=== PATIENT | female | born 1975 | race Caucasian/White ===

== ENCOUNTER 2019-07-12 21:01 | Emergency (ER) | payer MEDICAID ==
[~2019-07-12] VITALS: Ht 170.2 cm; Wt 65.8 kg
[2019-07-12 21:25] VITALS: BP 122/75
--- NOTE | 2019-07-12 21:28 | NUR ---
TO LOBBY A/W BED AMBULATORY
--- NOTE | 2019-07-12 21:35 | NUR ---
PT AMBULATED TO BED #6
--- NOTE | 2019-07-12 21:45 | NUR ---
43 Y/O F PRESENTS TO ED WITH C/O DIZZINESS AND LIGHTHEADEDNESS. PT REPORTS DURING AMBULATION SHE "FEELS DIZZY." +NAUSEA. PT STATES THAT SHE DOES NOT DRINK MUCH FLUIDS ON A DAILY BASIS. DENIES VISION CHANGES. PT SELF MEDICATED WITH TYLENOL AT 1430 FOR MIGRAINE. DENIES PAIN AT THIS TIME. BEDRAIL X1 UP. FAMILY AT BEDSIDE. WILL CONTINUE TO MONITOR.
--- NOTE | 2019-07-12 21:59 | NUR ---
URINE SPECIMEN PROVIDED.
--- NOTE | 2019-07-12 22:54 | NUR ---
Dr. Dueñas examining patient.
--- NOTE | 2019-07-12 23:10 | NUR ---
PT PROVIDED DISCHARGE PAPERWORK. GIVEN RX OF CIPRO AND ZOFRAN. MEDICATION ADMINISTRATION AND SIDE EFFECTS EXPLAINED. PT VERBALIZED UNDERSTANDING. PT AMBULATORY. ADVISED TO F/U WITH PCP.
[2019-07-12 23:11] VITALS: BP 122/67
== END 2019-07-12 23:10 | disposition home or self-care (01) ==
LOC: MED 21:01
DX: N39.0 Urinary tract infection, site not specified (principal); R42 Dizziness and giddiness; J45.909 Unspecified asthma, uncomplicated; Z98.890 Other specified postprocedural states; Z88.0 Allergy status to penicillin
CPT/HCPCS: 81002; 81025; 99283

== ENCOUNTER 2020-06-17 20:38 | Emergency (ER) | payer MEDICAID ==
[~2020-06-17] VITALS: Ht 152.4 cm; Wt 63.5 kg
[2020-06-17 20:55] VITALS: BP 120/75
--- NOTE | 2020-06-17 21:01 | NUR ---
PT TAKEN TO BED 6
--- NOTE | 2020-06-17 21:27 | NUR ---
Dr. Latham examining patient.
--- NOTE | 2020-06-17 21:45 | NUR ---
ACI given to pt with verbal understanding. Pt ambulated off unit with steady gait and all belongs
[2020-06-17 21:59] VITALS: BP 116/65
== END 2020-06-17 21:45 | disposition home or self-care (01) ==
LOC: MED 20:38
DX: K08.89 Other specified disorders of teeth and supporting structures (principal); J45.909 Unspecified asthma, uncomplicated; Z88.0 Allergy status to penicillin; Z98.890 Other specified postprocedural states
CPT/HCPCS: 99281; 99283

== ENCOUNTER 2020-10-15 14:32 | Emergency (ER) | payer MEDICAID ==
[~2020-10-15] VITALS: Ht 170.2 cm; Wt 87.5 kg
[2020-10-15 14:38] VITALS: BP 107/57
--- NOTE | 2020-10-15 14:49 | NUR ---
PT AMBULATED TO BED 7 WITH EVEN STEADY GAIT
--- NOTE | 2020-10-15 14:57 | NUR ---
44 y/o female bib self for right leg pain. Patient states "I have pain in my right leg; I think it could be form working out; i must have sprained it." Pain is a 9/10 and desribes it as being sore. Pain gets worse when patient walks. On assessment, skin is warm dry and intact. nontender on palpation. pt has full ROM. pt denies injury/trauma. pt took tylenol for pain with some relief. pt denies N/V/SOB. pt is a/o x4 with even and unlabored respirations. pt is laying in bed with bed in lowest position, brakes locked, x1 siderail up. Pmh: asthma medication: albuterol allergies: pcn
[2020-10-15] MEDS ORDERED: KETOROLAC 60 MG/2 ML VIAL IM ONE (15:00)
--- NOTE | 2020-10-15 15:02 | NUR ---
GERMAN OTERO AT BEDSIDE
--- NOTE | 2020-10-15 15:14 | NUR ---
US AT BEDSIDE
--- NOTE | 2020-10-15 15:35 | NUR ---
pt ambulated to restroom with steady gait for urine sample
[2020-10-15] MEDS ORDERED: METH750T5 PO (16:22)
[2020-10-15] MEDS ORDERED: NAPR-54 PO (16:22)
[2020-10-15 16:38] VITALS: BP 107/57
--- NOTE | 2020-10-15 16:39 | NUR ---
Patient discharged with v/s stable. Written and verbal after care instructions given and explained. Patient alert, oriented and verbalized understanding of instructions. Ambulatory with steady gait. All questions addressed prior to discharge. ID band removed. Patient advised to follow up with PMD. Rx of methocarbamol and naproxen given. Patient educated on indication of medication including possible reaction and side effects. Opportunity to ask questions provided and answered.
== END 2020-10-15 16:39 | disposition home or self-care (01) ==
LOC: MED 14:32
DX: S86.911A Strain of unspecified muscle(s) and tendon(s) at lower leg level, right leg, initial encounter (principal); J45.909 Unspecified asthma, uncomplicated; Z79.899 Other long term (current) drug therapy; Z88.0 Allergy status to penicillin; X58.XXXA Exposure to other specified factors, initial encounter; Y93.89 Activity, other specified; Y92.89 Other specified places as the place of occurrence of the external cause; Y99.8 Other external cause status
CPT/HCPCS: 81002; 81025; 93971; 96372; 99284; J1885

== ENCOUNTER 2021-01-02 17:22 | Emergency (ER) | payer MEDICAID ==
[~2021-01-02] VITALS: Ht 172.7 cm; Wt 74.8 kg
[~2021-01-02 17:22] MED LIST: METH750T5 PO; NAPR-54 PO
[2021-01-02 17:28] VITALS: BP 123/77
--- NOTE | 2021-01-02 17:28 | NUR ---
AMBULATORY TO ED 05
[2021-01-02] MEDS ORDERED: ALBUTEROL SULFATE/IPRATROPIU 3 ML SOL IH ONE (17:45)
[2021-01-02] MEDS ORDERED: ALBUTEROL 0.083% 2.5 MG/3 ML NEBU INH ONE (17:45)
[2021-01-02] MEDS ORDERED: predniSONE 20 MG TAB PO ONE (17:45)
[2021-01-02] MEDS ORDERED: PRED20TA5 PO (17:56)
[2021-01-02] MEDS ORDERED: ALBU0.0912 IH (17:56)
[2021-01-02] MEDS ORDERED: BUDE1AER IH (17:56)
--- NOTE | 2021-01-02 18:00 | NUR ---
45 Y/O FEMALE C/O SOB, COUGH, FATIGUE, CHILLS, KRISHNAMURTHY X2 DAYS. PT DENIES EXPOSURE TO COVID. PT USED SYMBICORT WITH NO RELIEF. SPO2 96% ON RA. PT HAS NOT RECEIVED COVID VACCINE. IN ED, VSS. NOT IN RESPIRATORY DISTRESS. CLEAR BREATH SOUNDS. ERMD MADE AWARE OF PT STATUS. PMH:ASTHMA ALLERGIES: PCN
[2021-01-02 18:31] VITALS: BP 123/77
--- NOTE | 2021-01-02 18:32 | NUR ---
Patient discharged with v/s stable. Written and verbal after care instructions given and explained. Patient alert, oriented and verbalized understanding of instructions. Ambulatory with steady gait. All questions addressed prior to discharge. ID band removed. Patient advised to follow up with PMD. Rx of albuterol, symbicort, prednisone given. Patient educated on indication of medication including possible reaction and side effects. Opportunity to ask questions provided and answered.
== END 2021-01-02 18:32 | disposition home or self-care (01) ==
LOC: MED 17:22
DX: J45.901 Unspecified asthma with (acute) exacerbation (principal); Z88.0 Allergy status to penicillin; Z79.899 Other long term (current) drug therapy
CPT/HCPCS: 94640; 99283; J7512; J7613

== ENCOUNTER 2021-01-13 15:41 | Emergency (ER) | payer MEDICAID ==
[~2021-01-13] VITALS: Ht 170.2 cm; Wt 77.1 kg
[~2021-01-13 15:41] MED LIST changes: +ALBU0.0912 IH; +BUDE1AER IH; +PRED20TA5 PO
[2021-01-13 16:12] VITALS: BP 113/76
[2021-01-13] MEDS ORDERED: KETOROLAC 30 MG/ML VIAL IM ONE (16:55)
[2021-01-13] MEDS ORDERED: CYCL-711 PO (17:19)
[2021-01-13] MEDS ORDERED: IBUP-2213 PO (17:19)
[2021-01-13] MEDS ORDERED: NITR100C7 PO (17:19)
[2021-01-13 17:40] VITALS: BP 113/76
== END 2021-01-13 17:40 | disposition home or self-care (01) ==
LOC: MED 15:41
DX: S39.012A Strain of muscle, fascia and tendon of lower back, initial encounter (principal); N39.0 Urinary tract infection, site not specified; J45.909 Unspecified asthma, uncomplicated; Z88.0 Allergy status to penicillin; Z79.899 Other long term (current) drug therapy; X58.XXXA Exposure to other specified factors, initial encounter; Y93.89 Activity, other specified; Y92.89 Other specified places as the place of occurrence of the external cause; Y99.8 Other external cause status
CPT/HCPCS: 81002; 81025; 87086; 96372; 99283; J1885

== ENCOUNTER 2021-03-10 13:45 | Emergency (ER) | payer MEDICAID ==
[~2021-03-10] VITALS: Ht 172.7 cm; Wt 72.6 kg
[~2021-03-10 13:45] MED LIST changes: +CEPH-588 PO; +CYCL-711 PO; +IBUP-2213 PO; +NITR100C7 PO
[2021-03-10 13:59] VITALS: BP 134/73
[2021-03-10] MEDS ORDERED: KETOROLAC 30 MG/ML VIAL IM ONE (14:45)
[2021-03-10] MEDS ORDERED: ACET-8386 PO (14:48)
[2021-03-10] MEDS ORDERED: CLIN300C2 PO (14:48)
--- NOTE | 2021-03-10 15:10 | NUR ---
45 Y/O FEMALE C/O RIGHT SIDED TOOTH PAIN X 2 HOUR AGO. PT STATES SHE WAS EATING SOMETHING AND FELT A SHARP PAIN IN TOOTH, AND NOTICED THAT PIECE OF TOOTH FELL OFF. BOTTOM RIGHT. PT RATES PAIN 10/10 THAT SHE DESCRIBES SHARP AND RADIATES ON THE SIDE OF HER FACE. PT A/O X4 WITH EVEN AND UNLABORED RESPIRATIONS. PMH - ASTHMA ALLERGIES - PCN
--- NOTE | 2021-03-10 15:29 | NUR ---
Patient discharged with v/s stable. Written and verbal after care instructions ABOUT TOOTH AVULSION given and explained. Patient alert, oriented and verbalized understanding of instructions. Ambulatory with steady gait. All questions addressed prior to discharge. ID band removed. Patient advised to follow up with PMD. Rx of NORCO 325, IBUPROFEN AND CLINDAMYCIN given. Patient educated on indication of medication including possible reaction and side effects. Opportunity to ask questions provided and answered.
[2021-03-10] MEDS ORDERED: IBUP-2213 PO (15:42)
== END 2021-03-10 15:29 | disposition home or self-care (01) ==
LOC: MED 13:45
DX: K08.419 Partial loss of teeth due to trauma, unspecified class (principal); J45.909 Unspecified asthma, uncomplicated; Z88.0 Allergy status to penicillin; Z79.899 Other long term (current) drug therapy
CPT/HCPCS: 96372; 99283; J1885

== ENCOUNTER 2021-04-07 17:25 | Emergency (ER) | payer MEDICAID ==
[~2021-04-07] VITALS: Ht 170.2 cm; Wt 68.0 kg
[~2021-04-07 17:25] MED LIST changes: +ACET-8386 PO; +CLIN300C2 PO
[2021-04-07 18:11] VITALS: BP 127/79
--- NOTE | 2021-04-07 18:14 | NUR ---
TENT 1
--- NOTE | 2021-04-07 19:24 | NUR ---
Patient discharged with v/s stable. Written and verbal after care instructions given and explained. Patient verbalized understanding. Ambulatory with steady gait. All questions addressed prior to discharge. Advised to follow up with PMD.
== END 2021-04-07 19:24 | disposition home or self-care (01) ==
LOC: MED 17:25
DX: R21 Rash and other nonspecific skin eruption (principal); L29.9 Pruritus, unspecified; J45.909 Unspecified asthma, uncomplicated; Z88.0 Allergy status to penicillin; Z79.899 Other long term (current) drug therapy
CPT/HCPCS: 99282

== ENCOUNTER 2021-05-11 20:09 | Emergency (ER) | payer MEDICAID ==
[~2021-05-11] VITALS: Ht 170.2 cm; Wt 90.3 kg
[2021-05-11 20:20] VITALS: BP 142/76
--- NOTE | 2021-05-11 20:29 | NUR ---
PT SENT TO LOBBY
[2021-05-11 22:08] LABS: APPEARANCE,URINE CLEAR (CLEAR); BILIRUBIN,URINE NEGATIVE (NEGATIVE); BLOOD, URINE 2+ (NEGATIVE); COLOR,URINE YELLOW (YELLOW); LEUKOCYTE ESTERASE ,URINE NEGATIVE (NEGATIVE); NITRITE, URINE NEGATIVE (NEGATIVE); UGLUCOSE NEGATIVE (NEGATIVE)
[2021-05-11 22:18] LABS: RBC,URINE 0-5 /HPF (0-5)
[2021-05-11 22:40] VITALS: BP 120/69
== END 2021-05-11 22:40 | disposition home or self-care (01) ==
LOC: MED 20:09
DX: R10.84 Generalized abdominal pain (principal); R19.7 Diarrhea, unspecified; R11.0 Nausea; J45.909 Unspecified asthma, uncomplicated; Z79.899 Other long term (current) drug therapy; Z88.0 Allergy status to penicillin; Z90.49 Acquired absence of other specified parts of digestive tract
CPT/HCPCS: 81001; 81025; 87086; 99283

== ENCOUNTER 2021-10-10 14:50 | Emergency (ER) | payer MEDICAID ==
[~2021-10-10] VITALS: Ht 170.2 cm; Wt 86.2 kg
[2021-10-10 14:58] VITALS: BP 125/75
[2021-10-10] MEDS ORDERED: KETOROLAC 30 MG/ML VIAL IM SCH (16:45)
--- NOTE | 2021-10-10 16:59 | NUR ---
roque and les swabbed, given to zoë capps at this time
--- NOTE | 2021-10-10 17:17 | NUR ---
45 y/o female, c/o spears, chills, night sweats, body aches, no appetite, fatigue, diarrhea, hurts during inspiration for 2 days. pt states she tested at home for covid and tested negative. denies anyone else at home sick. pmh: asthma allergy: penicillin med: denies
[2021-10-10] MEDS ORDERED: ALBU0.0912 IH ×3 (17:25→18:22)
[2021-10-10] MEDS ORDERED: PROM118S5 PO ×3 (17:25→18:22)
[2021-10-10] MEDS ORDERED: IBUP-2213 PO ×3 (17:25→18:22)
[2021-10-10] MEDS ORDERED: NITR100C7 PO ×3 (17:25→18:22)
[2021-10-10 17:42] VITALS: BP 125/75
--- NOTE | 2021-10-10 17:43 | NUR ---
Patient discharged with v/s stable. Written and verbal after care instructions given and explained. Patient alert, oriented and verbalized understanding of instructions. Ambulatory with steady gait. All questions addressed prior to discharge. ID band removed. Patient advised to follow up with PMD. Rx of macrobid, promethazine, albuterol, ibuprofen (sent) given. Patient educated on indication of medication including possible reaction and side effects. Opportunity to ask questions provided and answered.
== END 2021-10-10 17:42 | disposition home or self-care (01) ==
LOC: MED 14:50
DX: B34.9 Viral infection, unspecified (principal); Z20.822 Contact with and (suspected) exposure to COVID-19; N39.0 Urinary tract infection, site not specified; J45.909 Unspecified asthma, uncomplicated; Z88.0 Allergy status to penicillin; Z79.899 Other long term (current) drug therapy
CPT/HCPCS: 36415; 81002; 81025; 87086; 87426; 96372; 99283; J1885; U0003

== ENCOUNTER 2022-01-08 08:40 | Emergency (ER) | payer MEDICAID ==
[~2022-01-08] VITALS: Ht 170.2 cm; Wt 88.5 kg
[~2022-01-08 08:40] MED LIST changes: +PROM118S5 PO
--- NOTE | 2022-01-08 08:50 | NUR ---
PT AMBULATED TO BED 11
[2022-01-08 08:52] VITALS: BP 107/72
--- NOTE | 2022-01-08 09:15 | NUR ---
46YO FEMALE PT C/O EYE PAIN XTODAY. PT STATES SUDDEN ONSET OF 7/10 IRRITATION IN EYES. PT PRESENTS WITH REDDENED MILD SWELLING ACROSS EYELID AND PINK SCLERAS. PT STATES EYE CRUSTS UPON AWAKING THIS MORNING. NO DISCHARGE OR CRUST AT THIS TIME. NO CHANGE IN CONDITION IN VISION OR ROM. PT STATES USING " RED EYE " EYEDROPS WITH MILD RELIEF. PT AAOX4, VITALS WITHIN NORMAL RANGE. ALL NEEDS MET THIS TIME NHX ALLERGIES: PENICILLINS
[2022-01-08] MEDS ORDERED: CETI10SG1 PO (09:28)
--- NOTE | 2022-01-08 09:36 | NUR ---
Patient discharged with v/s stable. Written and verbal after care instructions FOR ALLERGIES given and explained. Patient alert, oriented and verbalized understanding of instructions. Ambulatory with steady gait. All questions addressed prior to discharge. ID band removed. Patient advised to follow up with PMD. Rx of ZYRTEC given. Opportunity to ask questions provided and answered.
--- NOTE | 2022-01-08 09:53 | NUR ---
The patient's care was reviewed and supervised by ED Agency Nurse 7, RN, RN.
== END 2022-01-08 09:36 | disposition home or self-care (01) ==
LOC: MED 08:40
DX: T78.49XA Other allergy, initial encounter (principal); X58.XXXA Exposure to other specified factors, initial encounter
CPT/HCPCS: 99282

== ENCOUNTER 2022-02-02 09:11 | Emergency (ER) | payer MEDICAID ==
[~2022-02-02] VITALS: Ht 170.2 cm; Wt 88.9 kg
[~2022-02-02 09:11] MED LIST changes: +CETI10SG1 PO
[2022-02-02 09:25] VITALS: BP 134/98
--- NOTE | 2022-02-02 09:50 | NUR ---
Olga timmons in [facility] - 02/02/22 at 1005 by MED1 Patient being evaluated by DR Fields at bedside.
--- NOTE | 2022-02-02 09:50 | NUR ---
Patient being evaluated by DR SANTIZO at A
[2022-02-02] MEDS ORDERED: FAMOTIDINE 20 MG TAB PO ONE (09:55)
[2022-02-02] MEDS ORDERED: predniSONE 20 MG TAB PO ONE (09:55)
--- NOTE | 2022-02-02 10:06 | NUR ---
PT AMB TO BED 7.
--- NOTE | 2022-02-02 10:06 | NUR ---
Patient taken for CT Scan via wheelchair.
--- NOTE | 2022-02-02 10:07 | NUR ---
PT TAKEN TO CT SCAN BY PRECISION DEVICES INSPECTOR/TESTER.
--- NOTE | 2022-02-02 10:11 | NUR ---
PT TO CT VIA WHEELCHAIR.
--- NOTE | 2022-02-02 10:43 | NUR ---
46 Y/O F C/O LEFT UPPER LIP NUMBNESS/SWELLING , KRISHNAMURTHY X 3 HOURS AGO. PT STATED SHE HAS BEEN USING LIP PLUM LIPSTIK FOR FEW DAYS NOW AND A DENDURE GLUE. PT THINKS IT HAD A SIDE EFFECT. NAUN PMH: ASTHMA
--- NOTE | 2022-02-02 12:10 | NUR ---
DR SANTIZO AT BEDSIDE.
[2022-02-02] MEDS ORDERED: DIPH25TA53 PO (12:37)
[2022-02-02] MEDS ORDERED: PRED20TA5 PO (12:37)
[2022-02-02] MEDS ORDERED: EPIN1KIT31 IM (12:37)
[2022-02-02 12:50] VITALS: BP 115/67
--- NOTE | 2022-02-02 12:51 | NUR ---
Patient discharged with v/s stable. Written and verbal after care instructions given and explained. Patient alert, oriented and verbalized understanding of instructions. Ambulatory with steady gait. All questions addressed prior to discharge. ID band removed. Patient advised to follow up with PMD. Rx of DIPHENHYDRAMINE HCI, EPINEPHRINE, PREDNISONE given. Opportunity to ask questions provided and answered.
== END 2022-02-02 12:51 | disposition home or self-care (01) ==
LOC: MED 09:11
DX: T78.40XA Allergy, unspecified, initial encounter (principal); R03.0 Elevated blood-pressure reading, without diagnosis of hypertension; J45.909 Unspecified asthma, uncomplicated; F41.9 Anxiety disorder, unspecified; Z88.0 Allergy status to penicillin; Z79.899 Other long term (current) drug therapy; X58.XXXA Exposure to other specified factors, initial encounter
CPT/HCPCS: 70450; 81025; 99284; J7512; Q0163

== ENCOUNTER 2022-02-27 00:21 | Emergency (ER) | payer MEDICAID ==
[~2022-02-27] VITALS: Ht 170.2 cm; Wt 77.1 kg
[~2022-02-27 00:21] MED LIST changes: +DIPH25TA53 PO; +EPIN1KIT31 IM
[2022-02-27 00:40] VITALS: BP 123/77
[2022-02-27] MEDS ORDERED: MECLIZINE 25 MG TAB PO ONE (00:55)
[2022-02-27 01:18] LABS: BASOPHILS # (AUTO) 0.1 K/uL (0.00-0.22); BASOPHILS % (AUTO) 0.6 % (0.0-2.0); EOSINOPHILS # (AUTO) 0.2 K/uL (0-0.4); HEMATOCRIT 40.2 % (36-48); HEMOGLOBIN 13.6 g/dL (12.0-16.0); LYMPHOCYTES # (AUTO) 3.6 K/uL (2.5-16.5); LYMPHOCYTES % (AUTO) 38.4 % (20.5-51.1); MEAN CORPUSCULAR HEMOGLOBIN 30 pg (27-31); MEAN CORPUSCULAR HGB CONC 34 g/dL (33-37); MEAN CORPUSCULAR VOLUME 88.5 fL (80-94); MONOCYTES # (AUTO) 0.5 K/uL (0.8-1.0); MONOCYTES % (AUTO) 5.8 % (1.7-9.3); NEUTROPHILS % (AUTO) 53.2 % (42.2-75.2); PLATELET COUNT (AUTO) 271 K/uL (140-450); RED BLOOD CELL COUNT(AUTO) 4.54 MIL/uL (4.20-5.40); WHITE BLOOD COUNT (AUTO) 9.4 K/uL (4.8-10.8)
[2022-02-27 01:33] LABS: ALBUMIN 4.1 g/dL (3.4-5.0); CARBON DIOXIDE 28.8 mmol/L (21-32); CREATININE 0.9 mg/dL (0.6-1.3); POTASSIUM 3.8 mmol/L (3.5-5.1); TOTAL BILIRUBIN 0.4 mg/dL (0.0-1.0)
[2022-02-27] MEDS ORDERED: MECL-303 PO (01:46)
[2022-02-27] MEDS ORDERED: CLIN300C52 PO (01:57)
--- NOTE | 2022-02-27 02:50 | NUR ---
46 YO F W C/O OF FEELING DIZZY X 4 DAYS, denies nausea, vomiting, diarrhea. skin is pink/warm/dry. a&o x4 with even and steady gait. lungs clear bl, heart rate even and regular. DENIES HTN, BS 103. PMH: ASTHMA
== END 2022-02-27 02:00 | disposition home or self-care (01) ==
LOC: MED 00:21
DX: H81.10 Benign paroxysmal vertigo, unspecified ear (principal); J45.909 Unspecified asthma, uncomplicated; Z88.0 Allergy status to penicillin
CPT/HCPCS: 36415; 80053; 85025; 99283; J8597

== ENCOUNTER 2022-03-09 11:35 | Emergency (ER) | payer MEDICAID ==
[~2022-03-09] VITALS: Ht 167.6 cm; Wt 88.5 kg
[~2022-03-09 11:35] MED LIST changes: +CLIN300C52 PO; +MECL-303 PO
[2022-03-09 11:52] VITALS: BP 108/67
--- NOTE | 2022-03-09 12:59 | NUR ---
GERMAN BELLA AT PT SIDE FOR EVAL
--- NOTE | 2022-03-09 13:00 | NUR ---
46 Y/O FEMALE BIB SELF C/O OF LEFT EYE SWELLINGX 1DAY. PER PT THE AREA HAS ITCHING AND SWELLING, 7/10. DENIES ANY MECHANICAL, CHEMICAL TRAUMA, DENIES ANY SECRETIONS ON THE EYE OR BLURRING OF VISION. DENIES ANY NEW PRODUCTS ON FACE EXCEPT SON'S FACEWASH PT HAS PREVIOUSLY USED. ALLERGIES: PCN PMH: ASTHMA
[2022-03-09] MEDS ORDERED: ERYT2GEL22 TP (13:01)
--- NOTE | 2022-03-09 13:20 | NUR ---
Patient discharged with v/s stable. Written and verbal after care instructions given and explained. Patient alert, oriented and verbalized understanding of instructions. Ambulatory with steady gait. All questions addressed prior to discharge. ID band removed. Patient advised to follow up with PMD. Rx of ERYTHROMYCIN BASE/ETHANOL given. Patient educated on indication of medication including possible reaction and side effects. Opportunity to ask questions provided and answered.
== END 2022-03-09 13:20 | disposition home or self-care (01) ==
LOC: MED 11:35
DX: H01.004 Unspecified blepharitis left upper eyelid (principal); J45.909 Unspecified asthma, uncomplicated; Z88.0 Allergy status to penicillin
CPT/HCPCS: 99283